=== PATIENT | female | born 1975 | race African-American/Black ===

== ENCOUNTER 2025-05-29 13:52 | Emergency (ER) | payer BC, MEDICAID ==
[~2025-05-29] VITALS: Ht 157.5 cm; Wt 69.0 kg
[2025-05-29 14:15] VITALS: O2SAT 99
[2025-05-29] MEDS ORDERED: LIDO700A30 TP (15:19)
[2025-05-29] MEDS ORDERED: IBUP-2029 MT (15:19)
[2025-05-29] MEDS: LIDOCAINE 5% PATCH TOP SCH (15:30)
[2025-05-29] MEDS: TRAMADOL 50MG TABLET PO ONE (15:30)
[2025-05-29] MEDS: IBUPROFEN 600MG TABLET PO ONE (15:30)
[2025-05-29 15:56] VITALS: BP 139/77; PULSE 77; RESP 18; TEMP 36.9; O2SAT 100
== END 2025-05-29 16:01 | disposition home or self-care (01) ==
LOC: ER 13:52
DX: G89.29 Other chronic pain (principal); M54.9 Dorsalgia, unspecified; M54.2 Cervicalgia; F43.10 Post-traumatic stress disorder, unspecified; I10 Essential (primary) hypertension; Z79.899 Other long term (current) drug therapy
CPT/HCPCS: 81025; 99284